=== PATIENT | male | born 1985 | race Caucasian/White ===

== ENCOUNTER 2022-08-19 03:17 | Emergency (ER) | payer MEDICAID, SELFPAY ==
[2022-08-19 03:24] VITALS: BP 130/80; BP 135/87; PULSE 70; PULSE 73; RESP 18; TEMP 36.9; O2SAT 97; O2SAT 98; BMI 24.0
--- NOTE | 2022-08-19 04:13 | ED_ITS ---
HPI - General Adult General Chief complaint: ETOH/Substance Use Stated complaint: etoh Time Seen by Provider: 08/19/22 04:13 Source: patient Mode of arrival: EMS Limitations: no limitations History of Present Illness HPI narrative: Patient 37 years old with history of poor 5 area without cutaneous manifestation, alcohol associated cirrhosis complicated with nonbleeding esophageal varices, portal hypertensive gastropathy on carvedilol, S itis on furosemide followed by [facility] stopped drinking about a year ago started drinking again after seen by his PCP yesterday who with the labs which showed elevated ammonia of 106, patient comes here for detox placement no nausea no vomiting no abdominal pain or distension no change in sensorium no melena no vomiting no abdominal pain. Patient's labs reviewed from [facility] which were done on 08/17/2022 showed WBC count of 3.2 hemoglobin 13.5 hematocrit 40.3 platelet count 52K INR of 1.5 PT of 15.5, potassium 3.8 BUN 6 creatinine 0.5 alkaline phosphatase 268 total bilirubin 3 ALT 27 AST 63 ammonia level 106 patient just discharged from [facility] on 05/26/2022 Related Data Allergies Allergy/AdvReac Type Severity Reaction Status Date / Time Penicillins [PENICILLINS] Allergy Mild HIVES Unverified 04/04/20 18:42 Review of Systems Review of Systems: Yes all other systems are reviewed and are negative [facility] Social History Social History Alcohol intake: former Smoked in Last 30 Days: No Use of substances other than those prescribed or required for medical reasons: Yes Substance Use Type: Marijuana Substance Use Frequency: Weekly Last Used Substance: Days (ago) Advance Directives: No Advance Directives Information Provided: No Physical Exam ED Vital Signs: Vital Signs - 24 hr 08/19/22 03:24 08/19/22 06:06 Temperature 98.4 F 98.4 F Pulse Rate 73 75 Respiratory Rate 18 18 Blood Pressure 135/87 134/72 Pulse Oximetry 98 98 Oxygen Delivery Method Room Air Room Air BMI result Body Mass Index 24.0 Appearance: Alert. Oriented X3. No acute distress. Eyes: icteric+ ENT: Pharynx normal. Oral Mucosa moist Neck: Normal inspection. Neck supple. CVS: Normal heart rate and rhythm. Pulses normal. Respiratory: No respiratory distress. Equal air entry bilateral, no wheezing/rales/rhonchi Abdomen: Soft and nontender. Bowel sounds are present, no mass palpable, no CVA tenderness Skin: Skin warm and dry. icteric. Normal skin turgor. Extremities: No lower extremity edema. No calf tenderness Neuro: Oriented X 3. No motor deficit. No sensory deficit.No cerebellar signs , cranial nerves II-XII intact Medications Administered Discontinued Medications Generic Name Dose Route Start Last Admin Trade Name Freq PRN Reason Stop Dose Admin Lactulose 30 gm 08/19/22 05:39 08/19/22 05:47 Lactulose 20 Gm/30 Ml Solution PO 08/19/22 05:40 30 gm ONCE ONE Administration Medical Decision Making Medical Decision Making MDM Narrative: Patient alcoholic with alcoholic cirrhosis with stable labs high ammonia level without any confusion. Will consult recovery rn/care team for detox Lab Data MDM Lab Attestation statement: I reviewed the patient's lab results. 08/19/22 04:45 08/19/22 04:45 Labs: Lab Results 08/19/22 08/19/22 08/19/22 Range/Units 04:45 04:45 04:45 WBC 4.3 L (4.8-10.8) X10*3/uL RBC 4.23 L (4.60-5.80) X10*6/uL Hgb 13.3 L (14.0-18.0) g/dl Hct 39.0 L (42.0-52.0) % MCV 92.2 (80.0-98.0) fL MCH 31.4 (27.0-33.0) pg MCHC 34.1 (31.0-36.0) g/dl RDW 14.5 (11.0-16.0) % Plt Count 40 L (160-400) X10*3/uL MPV 11.4 (9.4-12.4) fL Immature Gran % (Auto) 0.2 (0.0-0.4) % Neut % (Auto) 47.0 (45-73) % Lymph % (Auto) 42.7 H (20-40) % [place] % (Auto) 7.5 (2-11) % Eos % (Auto) 1.9 (0-4) % Baso % (Auto) 0.7 (0-2) % Lymph # (Auto) 1.8 (1.2-4.9) X10*3/uL [place] # (Auto) 0.3 (0.1-1.2) X10*3/uL Eos # (Auto) 0.1 (0.0-0.4) X10*3/uL Baso # (Auto) 0.0 (0.0-0.2) X10*3/uL Abs Immat Gran (auto) 0.01 (0.00-0.03) X10*3/uL Absolute Neuts (auto) 2.0 (2.0-8.3) x10*3/uL Absolute Nucleated RBC 0.000 (0.0-0.012) X10*3/uL Nucleated RBC % (auto) 0.0 (0.0-0.2) /100WBC Sodium 146 H (135-145) mmol/L Potassium 3.4 (3.3-5.1) mmol/L Chloride 115 H (96-108) mmol/L Carbon Dioxide 21 L (22-29) mmol/L Anion Gap 13 (12-20) BUN 5 L (9-16) mg/dL Creatinine 0.62 (0.5-1.4) mg/dL Estim Creat Clear Calc 173.7 Estimated GFR > 60 Random Glucose 98 (60-115) mg/dL Calcium 8.0 L (8.4-10.2) mg/dL Magnesium 1.7 (1.6-2.6) mg/dL Total Bilirubin 5.0 H (0.0-1.0) mg/dL AST 61 H (5-37) U/L ALT 28 (0-40) U/L Alkaline Phosphatase 202 H (39-117) U/L Ammonia 93 H (13-55) umol/L Total Protein 6.2 L (6.5-8.0) g/dL Albumin 3.0 L (3.5-5.0) g/dL Lipase 107 H (8-78) U/L Urine Opiates Screen (Not Detect) Urine Fentanyl Screen (Not Detect) Ur Barbiturates Screen (Not Detect) Ur Phencyclidine Scrn (Not Detect) Ur Amphetamines Screen (Not Detect) U Benzodiazepines Scrn (Not Detect) Urine Cocaine Screen (Not Detect) U Marijuana (THC) Screen (Not Detect) Ethyl Alcohol mg/dL 02/01/23 02/01/23 Range/Units 04:45 04:45 WBC (4.8-10.8) X10*3/uL RBC (4.60-5.80) X10*6/uL Hgb (14.0-18.0) g/dl Hct (42.0-52.0) % MCV (80.0-98.0) fL MCH (27.0-33.0) pg MCHC (31.0-36.0) g/dl RDW (11.0-16.0) % Plt Count (160-400) X10*3/uL MPV (9.4-12.4) fL Immature Gran % (Auto) (0.0-0.4) % Neut % (Auto) (45-73) % Lymph % (Auto) (20-40) % [place] % (Auto) (2-11) % Eos % (Auto) (0-4) % Baso % (Auto) (0-2) % Lymph # (Auto) (1.2-4.9) X10*3/uL [place] # (Auto) (0.1-1.2) X10*3/uL Eos # (Auto) (0.0-0.4) X10*3/uL Baso # (Auto) (0.0-0.2) X10*3/uL Abs Immat Gran (auto) (0.00-0.03) X10*3/uL Absolute Neuts (auto) (2.0-8.3) x10*3/uL Absolute Nucleated RBC (0.0-0.012) X10*3/uL Nucleated RBC % (auto) (0.0-0.2) /100WBC Sodium (135-145) mmol/L Potassium (3.3-5.1) mmol/L Chloride (96-108) mmol/L Carbon Dioxide (22-29) mmol/L Anion Gap (12-20) BUN (9-16) mg/dL Creatinine (0.5-1.4) mg/dL Estim Creat Clear Calc Estimated GFR Random Glucose (60-115) mg/dL Calcium (8.4-10.2) mg/dL Magnesium (1.6-2.6) mg/dL Total Bilirubin (0.0-1.0) mg/dL AST (5-37) U/L ALT (0-40) U/L Alkaline Phosphatase (39-117) U/L Ammonia (13-55) umol/L Total Protein (6.5-8.0) g/dL Albumin (3.5-5.0) g/dL Lipase (8-78) U/L Urine Opiates Screen Not Detected (Not Detect) Urine Fentanyl Screen Not Detected (Not Detect) Ur Barbiturates Screen Not Detected (Not Detect) Ur Phencyclidine Scrn Not Detected (Not Detect) Ur Amphetamines Screen Not Detected (Not Detect) U Benzodiazepines Scrn Not Detected (Not Detect) Urine Cocaine Screen Not Detected (Not Detect) U Marijuana (THC) Screen POSITIVE H (Not Detect) Ethyl Alcohol 265 mg/dL Discharge Plan Discharge Clinical Impression: Alcoholic intoxication, Alcoholic cirrhosis of liver Patient Disposition: Still a Patient Interventions: [place]-Suicide Risk Severity Scale Last Done: 08/19/22 03:36
[2022-08-19 04:51] LABS: MANUAL DIFF FLAG NO
[2022-08-19 04:53] LABS: Basophils Percent Auto 0.7 % (0-2); Eosinophils Absolute Auto 0.1 X10*3/uL (0.0-0.4); Eosinophils Percent Auto 1.9 % (0-4); Hemoglobin 13.3 g/dl (14.0-18.0); Imm Gran Abs Auto 0.01 X10*3/uL (0.00-0.03); Imm Gran Pct Auto 0.2 % (0.0-0.4); Lymphocytes Absolute Auto 1.8 X10*3/uL (1.2-4.9); Lymphocytes Percent Auto 42.7 % (20-40); Mean Corpuscular HGB Conc 34.1 g/dl (31.0-36.0); Mean Corpuscular Hemoglobin 31.4 pg (27.0-33.0); Mean Corpuscular Volume 92.2 fL (80.0-98.0); Mean Platelet Volume 11.4 fL (9.4-12.4); Monocytes Absolute Auto 0.3 X10*3/uL (0.1-1.2); Monocytes Percent Auto 7.5 % (2-11); Red Blood Count 4.23 X10*6/uL (4.60-5.80); Red Cell Distribution Width 14.5 % (11.0-16.0); White Blood Count 4.3 X10*3/uL (4.8-10.8)
[2022-08-19 04:55] LABS: Platelet Count 40 X10*3/uL (160-400)
[2022-08-19 05:00] LABS: Ammonia 93 umol/L (13-55)
[2022-08-19 05:06] LABS: Ethanol 265 mg/dL
[2022-08-19 05:09] LABS: Alanine Aminotransferase 28 U/L (0-40); Alkaline Phosphatase 202 U/L (39-117); Anion Gap 13 (12-20); Aspartate Amino Transferase 61 U/L (5-37); Blood Urea Nitrogen 5 mg/dL (9-16); Carbon Dioxide 21 mmol/L (22-29); Chloride 115 mmol/L (96-108); Creatinine Clr Calc Pharmacy 173.7; Estimated Glomerular Filt Rate > 60; Glucose Random 98 mg/dL (60-115); Lipase 107 U/L (8-78); Magnesium 1.7 mg/dL (1.6-2.6); Potassium 3.4 mmol/L (3.3-5.1); Sodium 146 mmol/L (135-145); Total Protein 6.2 g/dL (6.5-8.0)
[2022-08-19 05:12] LABS: Amphetamine Screen Urine Not Detected (Not Detect); Barbiturates, Urine Not Detected (Not Detect); Benzodiazepines Screen Urine Not Detected (Not Detect); Cannabinoid Screen Urine POSITIVE (Not Detect); Cocaine Screen Urine Not Detected (Not Detect); Fentanyl, urine Not Detected (Not Detect); Opiate Screen Urine Not Detected (Not Detect); Phencyclidine Screen Urine Not Detected (Not Detect)
[2022-08-19] MEDS: Lactulose 20 GM/30 ML SOLUTION 30 GM PO (05:47)
[2022-08-19 06:06] VITALS: BP 134/72; PULSE 75; RESP 18; TEMP 36.9; O2SAT 98
--- NOTE | 2022-08-19 08:52 | PHA.MEDREC ---
Pharmacy Consult ? Medication Reconciliation Pharmacy has completed the medication reconciliation. Spoke to patient directly, able to name most of his medications, I asked about furosemide and he was insistent that he takes amiloride as well with his furosemide, but he has not filled that amiloride prescription since May. Will notify provider.
--- NOTE | 2022-08-19 09:30 | PC.NURSE ---
belongings locked by security in locker 10
[2022-08-19 09:40] VITALS: RESP 18
--- NOTE | 2022-08-19 09:40 | MHC.RECOVRN ---
This typewriter tester met w/ patient, patient sleeping in bed, under blanket, awake to verbal stimuli. Patient requesting detox. Patient reports one year of recovery from ETOH. Patient states prior to coming to hospital, drank 50ml of hard alcohol. Patient states nausea, headache, body pain currently. Patient reports no history of treatment for alcohol use. Patient reports no medications used for ETOH use. Patient states increased life stressors led to reoccurrence. This typewriter tester to begin ATS bedsearch, referral sent to [facility].
[2022-08-19 10:11] LABS: COVID-19 Test Negative (Negative); IDNOW Serial# 55D5AD1C
[2022-08-19 12:00] VITALS: RESP 18
--- NOTE | 2022-08-19 12:24 | PC.NURSE ---
Spouse brought 2 weeks worth of meds. Placed in Locker 7.
--- NOTE | 2022-08-19 12:26 | MHC.RECOVRN ---
This consumer loan underwriter [facility], in order to be considered for detox admission. This consumer loan underwriter w/ patient called patients Gl[facility] Holder agreeable to drop off husbands medications here at the ED. T/W to f/u with Gabi FRANCO once medications are hereon site. Gabi will then review with detox team and get back to t/w about scheduling a phone intake with patient. Glory, patients reports has been finding drinking .
[2022-08-19 14:00] VITALS: RESP 18
--- NOTE | 2022-08-19 15:06 | MHC.RECOVRN ---
Patient completed phone intake, confirmed 4pm Admission time at [facility], Navya RN aware, Provider aware. T/W to coordinate Ly[employer] transport at 3:30pm.
== END 2022-08-19 15:21 | disposition other institution (70) ==
PROVIDERS: Emergency Provider Internal Medicine; PCP Family Medicine
DX: F10.129 Alcohol abuse with intoxication, unspecified (principal); Y90.8 Blood alcohol level of 240 mg/100 ml or more; K70.30 Alcoholic cirrhosis of liver without ascites; Z20.822 Contact with and (suspected) exposure to COVID-19; Z20.828 Contact with and (suspected) exposure to other viral communicable diseases; Z79.899 Other long term (current) drug therapy
CPT/HCPCS: 36415; 80053; 80307; 82077; 82140; 83690; 83735; 85025; 87635; 99285

== ENCOUNTER 2022-10-11 02:08 | Inpatient (IN) | payer MEDICAID, SELFPAY ==
--- NOTE | 2022-10-11 02:16 | ED_ITS ---
HPI - Alcohol General Chief Complaint: General Medical Stated Complaint: ETOH, SEEKING DETOX Time Seen by Provider: 10/11/22 02:11 Source: patient Mode of arrival: EMS Limitations: no limitations History of Present Illness HPI narrative: 37-year-old male with history of liver cirrhosis, alcohol abuse presents seeking detox. Patient has been drinking tonight. Had approximately 7 shots of 100 proof alcohol. This is just prior to arrival. He he does smoke marijuana from time to time. Denies SI or HI. Has been [facility] detox approximately 1 month ago. At that time, he was sent to [facility] for an elevated ammonia level. When he went to go back for detox, there was no bed available. Patient describes his symptoms as severe. Symptoms are worsened by alcohol abuse. Related Data Home Medications Medication Instructions Recorded Confirmed amiloride 5 mg tablet 1 tab PO BID 08/19/22 08/19/22 ascorbic acid (vitamin C) 500 mg 1 tab PO DAILY 08/19/22 08/19/22 tablet (Vitamin C) carvedilol 3.125 mg tablet 1 tab PO BID 08/19/22 08/19/22 cyanocobalamin (vitamin B-12) 500 500 mcg PO BID 08/19/22 08/19/22 mcg tablet ferrous sulfate 325 mg (65 mg 1 tab PO DAILY 08/19/22 08/19/22 iron) tablet,delayed release folic acid 1 mg tablet 1 tab PO DAILY 08/19/22 08/19/22 furosemide 40 mg tablet 1 tab PO BID 08/19/22 08/19/22 ondansetron HCl 4 mg tablet 1 tab PO Q8H PRN nausea/vomiting 08/19/22 08/19/22 oxycodone 10 mg tablet 1 tab PO BID PRN Pain 08/19/22 08/19/22 pantoprazole 40 mg tablet,delayed 1 tab PO BID@0630,1630 08/19/22 08/19/22 release potassium chloride 20 mEq 1 tab PO BID 08/19/22 08/19/22 tablet,extended release rifaximin 550 mg tablet (Xifaxan) 1 tab PO BID 08/19/22 08/19/22 thiamine HCl (vitamin B1) 100 mg 1 cap PO BID 08/19/22 08/19/22 tablet (Vitamin B-1) Allergies Allergy/AdvReac Type Severity Reaction Status Date / Time Penicillins [PENICILLINS] Allergy Mild HIVES Unverified 04/04/20 18:42 [facility] Social History Social History Alcohol intake: former Substance Use Type: Marijuana Advance Directives: No Advance Directives Information Provided: Yes Physical Exam ED Vital Signs: Vital Signs - 24 hr 10/11/22 02:39 10/11/22 05:44 Temperature 97.6 F 98 F Pulse Rate 83 88 Respiratory Rate 17 18 Blood Pressure 128/77 117/70 Pulse Oximetry 97 96 Oxygen Delivery Method Room Air Room Air BMI result Body Mass Index 25.8 GEN: Well developed, no acute distress, alert, oriented HEENT: Normocephalic, atraumatic, normal external ears, nose appears normal, no oropharyngeal edema or exudates Eyes: Normal to appearance Neck: Supple, no lymphadenopathy Respiratory: Talks in complete sentences, no respiratory distress, clear to auscultation bilaterally Cardiovascular: Regular rate and rhythm, no murmurs rubs or gallops Abdomen: Soft, nontender, nondistended, no guarding, no rebound Back: No CVA tenderness Extremities: No clubbing cyanosis or edema Neurologic: No focal neurologic deficits, cranial nerves 2-12 intact, strength is 5/5 bilaterally, gait normal, +asterixis Skin: No rash Course Course Course Narrative: 37-year-old male with history of liver cirrhosis, alcohol abuse presents requesting detox. Patient is currently intoxicated. He however he is alert and oriented. Has decision-making capacity. Is not SI or HI. Will obtain routine laboratory analysis. He did have recent history of elevated ammonia levels. Will check ammonia level specially given presence of asterixis. He does not appear to be acutely confused or metabolic encephalopathy. Reevaluation(s) Reevaluation #1: Patient transitioned to care of oncoming ED provider Time: 06:14 Medical Decision Making Medical Decision Making [facility] Narrative: Three 7-year-old male presents with acute alcohol intoxication requesting detox. Patient is not suicidal homicidal. He has no focal deficits. Does have asterixis. Differential Diagnosis Differential Diagnoses: The differential diagnosis associated with the presentation includes (Alcohol abuse, substance abuse, depression, anxiety, encephalopathy) Admission/Observation Consideration of admission/observation: Escalation of care including admission/observation considered Lab Data [facility] Lab Attestation statement: I reviewed the patient's lab results. 10/11/22 02:36 10/11/22 02:36 Labs: Lab Results 10/11/22 10/11/22 10/11/22 Range/Units 02:36 02:36 02:36 WBC 3.9 L (4.8-10.8) X10*3/uL RBC 4.26 L (4.60-5.80) X10*6/uL Hgb 13.6 L (14.0-18.0) g/dl Hct 39.2 L (42.0-52.0) % MCV 92.0 (80.0-98.0) fL MCH 31.9 (27.0-33.0) pg MCHC 34.7 (31.0-36.0) g/dl RDW 15.9 (11.0-16.0) % Plt Count 51 L D (160-400) X10*3/uL MPV 11.0 (9.4-12.4) fL Immature Gran % (Auto) 0.3 (0.0-0.4) % Neut % (Auto) 46.2 (45-73) % Lymph % (Auto) 45.5 H (20-40) % [place] % (Auto) 5.9 (2-11) % Eos % (Auto) 1.3 (0-4) % Baso % (Auto) 0.8 (0-2) % Lymph # (Auto) 1.8 (1.2-4.9) X10*3/uL [place] # (Auto) 0.2 (0.1-1.2) X10*3/uL Eos # (Auto) 0.1 (0.0-0.4) X10*3/uL Baso # (Auto) 0.0 (0.0-0.2) X10*3/uL Abs Immat Gran (auto) 0.01 (0.00-0.03) X10*3/uL Absolute Neuts (auto) 1.8 L (2.0-8.3) x10*3/uL Absolute Nucleated RBC 0.000 (0.0-0.012) X10*3/uL Nucleated RBC % (auto) 0.0 (0.0-0.2) /100WBC Sodium 144 (135-145) mmol/L Potassium 3.3 (3.3-5.1) mmol/L Chloride 116 H (96-108) mmol/L Carbon Dioxide 20 L (22-29) mmol/L Anion Gap 11 L (12-20) BUN 6 L (9-16) mg/dL Creatinine 0.61 (0.5-1.4) mg/dL Estim Creat Clear Calc 171.1 Estimated GFR > 60 Random Glucose 99 (60-115) mg/dL Calcium 8.2 L (8.4-10.2) mg/dL Total Bilirubin 3.8 H (0.0-1.0) mg/dL AST 55 H (5-37) U/L ALT 26 (0-40) U/L Alkaline Phosphatase 193 H (39-117) U/L Ammonia 66 H (13-55) umol/L Total Protein 6.4 L (6.5-8.0) g/dL Albumin 3.3 L (3.5-5.0) g/dL Urine Color Urine Appearance Urine pH (5.0-9.0) Ur Specific [place] (1.005-1.025) Urine Protein (Neg-Trace) mg/dL Urine Glucose (UA) (Negative) mg/dL Urine Ketones (Negative) mg/dL Urine Blood (Negative) Urine Nitrite (Negative) Ur Leukocyte Esterase (Negative) Urine Opiates Screen (Not Detect) Urine Fentanyl Screen (Not Detect) Ur Barbiturates Screen (Not Detect) Ur Phencyclidine Scrn (Not Detect) Ur Amphetamines Screen (Not Detect) U Benzodiazepines Scrn (Not Detect) Urine Cocaine Screen (Not Detect) U Marijuana (THC) Screen (Not Detect) Ethyl Alcohol 316 H* mg/dL COVID-19 (AMY) (Negative) COVID-19 Clin Com 10/11/22 10/11/22 10/11/22 Range/Units 02:36 04:11 04:11 WBC (4.8-10.8) X10*3/uL RBC (4.60-5.80) X10*6/uL Hgb (14.0-18.0) g/dl Hct (42.0-52.0) % MCV (80.0-98.0) fL MCH (27.0-33.0) pg MCHC (31.0-36.0) g/dl RDW (11.0-16.0) % Plt Count (160-400) X10*3/uL MPV (9.4-12.4) fL Immature Gran % (Auto) (0.0-0.4) % Neut % (Auto) (45-73) % Lymph % (Auto) (20-40) % [place] % (Auto) (2-11) % Eos % (Auto) (0-4) % Baso % (Auto) (0-2) % Lymph # (Auto) (1.2-4.9) X10*3/uL [place] # (Auto) (0.1-1.2) X10*3/uL Eos # (Auto) (0.0-0.4) X10*3/uL Baso # (Auto) (0.0-0.2) X10*3/uL Abs Immat Gran (auto) (0.00-0.03) X10*3/uL Absolute Neuts (auto) (2.0-8.3) x10*3/uL Absolute Nucleated RBC (0.0-0.012) X10*3/uL Nucleated RBC % (auto) (0.0-0.2) /100WBC Sodium (135-145) mmol/L Potassium (3.3-5.1) mmol/L Chloride (96-108) mmol/L Carbon Dioxide (22-29) mmol/L Anion Gap (12-20) BUN (9-16) mg/dL Creatinine (0.5-1.4) mg/dL Estim Creat Clear Calc Estimated GFR Random Glucose (60-115) mg/dL Calcium (8.4-10.2) mg/dL Total Bilirubin (0.0-1.0) mg/dL AST (5-37) U/L ALT (0-40) U/L Alkaline Phosphatase (39-117) U/L Ammonia (13-55) umol/L Total Protein (6.5-8.0) g/dL Albumin (3.5-5.0) g/dL Urine Color Dark Yellow Urine Appearance Clear Urine pH 7.5 (5.0-9.0) Ur Specific [place] 1.020 (1.005-1.025) Urine Protein Negative (Neg-Trace) mg/dL Urine Glucose (UA) Negative (Negative) mg/dL Urine Ketones Negative (Negative) mg/dL Urine Blood Negative (Negative) Urine Nitrite Negative (Negative) Ur Leukocyte Esterase Negative (Negative) Urine Opiates Screen Not Detected (Not Detect) Urine Fentanyl Screen Not Detected (Not Detect) Ur Barbiturates Screen Not Detected (Not Detect) Ur Phencyclidine Scrn Not Detected (Not Detect) Ur Amphetamines Screen Not Detected (Not Detect) U Benzodiazepines Scrn Not Detected (Not Detect) Urine Cocaine Screen Not Detected (Not Detect) U Marijuana (THC) Screen POSITIVE H (Not Detect) Ethyl Alcohol mg/dL COVID-19 (AMY) Negative (Negative) COVID-19 Clin Com See Note Independent Historian Clinical information obtained from an independent historian. History obtained from or confirmed by: EMS Prescription Management I considered prescription management with: Other (Ativan) Chronic Conditions Patient?s care impacted by: Other (Alcohol abuse) Medications Administered Generic Name Dose Route Start Last Admin Trade Name Freq PRN Reason Stop Dose Admin Lactulose 30 gm 10/11/22 03:15 10/11/22 03:29 Lactulose 20 Gm/30 Ml Solution PO 30 gm TID TERRANCE Administration Discharge Plan Discharge Clinical Impression: Alcohol abuse Patient Disposition: Still a Patient Prescriptions: No Action furosemide 40 mg tablet 1 tab PO BID thiamine HCl (vitamin B1) [Vitamin B-1] 100 mg tablet 1 cap PO BID carvedilol 3.125 mg tablet 1 tab PO BID ascorbic acid (vitamin C) [Vitamin C] 500 mg tablet 1 tab PO DAILY pantoprazole 40 mg tablet,delayed release (DR/EC) 1 tab PO BID@0630,1630 folic acid 1 mg tablet 1 tab PO DAILY ferrous sulfate 325 mg (65 mg iron) tablet,delayed release (DR/EC) 1 tab PO DAILY potassium chloride 20 mEq tablet extended release 1 tab PO BID ondansetron HCl 4 mg tablet 1 tab PO Q8H PRN (Reason: nausea/vomiting) amiloride 5 mg tablet 1 tab PO BID cyanocobalamin (vitamin B-12) 500 mcg Tablet 500 mcg PO BID oxycodone 10 mg tablet 1 tab PO BID PRN (Reason: Pain) Xifaxan 550 mg tablet 1 tab PO BID
[2022-10-11 02:31] VITALS: BP 140/97; PULSE 84; O2SAT 99
[2022-10-11 02:39] VITALS: BP 128/77; PULSE 83; RESP 17; TEMP 36.4; O2SAT 97; BMI 25.8
[2022-10-11 02:49] LABS: MANUAL DIFF FLAG NO
[2022-10-11 02:51] LABS: Basophils Percent Auto 0.8 % (0-2); Eosinophils Absolute Auto 0.1 X10*3/uL (0.0-0.4); Eosinophils Percent Auto 1.3 % (0-4); Hematocrit 39.2 % (42.0-52.0); Hemoglobin 13.6 g/dl (14.0-18.0); Imm Gran Abs Auto 0.01 X10*3/uL (0.00-0.03); Imm Gran Pct Auto 0.3 % (0.0-0.4); Lymphocytes Absolute Auto 1.8 X10*3/uL (1.2-4.9); Lymphocytes Percent Auto 45.5 % (20-40); Mean Corpuscular HGB Conc 34.7 g/dl (31.0-36.0); Mean Corpuscular Hemoglobin 31.9 pg (27.0-33.0); Monocytes Absolute Auto 0.2 X10*3/uL (0.1-1.2); Monocytes Percent Auto 5.9 % (2-11); Neutrophils Absolute Auto 1.8 x10*3/uL (2.0-8.3); Neutrophils Percent Auto 46.2 % (45-73); Platelet Count 51 X10*3/uL (160-400); Red Blood Count 4.26 X10*6/uL (4.60-5.80); Red Cell Distribution Width 15.9 % (11.0-16.0); White Blood Count 3.9 X10*3/uL (4.8-10.8)
[2022-10-11 03:01] LABS: Ammonia 66 umol/L (13-55)
[2022-10-11 03:10] LABS: Alanine Aminotransferase 26 U/L (0-40); Albumin Level 3.3 g/dL (3.5-5.0); Alkaline Phosphatase 193 U/L (39-117); Anion Gap 11 (12-20); Aspartate Amino Transferase 55 U/L (5-37); Bilirubin Total 3.8 mg/dL (0.0-1.0); Blood Urea Nitrogen 6 mg/dL (9-16); Calcium 8.2 mg/dL (8.4-10.2); Carbon Dioxide 20 mmol/L (22-29); Chloride 116 mmol/L (96-108); Creatinine Clr Calc Pharmacy 171.1; Estimated Glomerular Filt Rate > 60; Ethanol 316 mg/dL; Glucose Random 99 mg/dL (60-115); Potassium 3.3 mmol/L (3.3-5.1); Sodium 144 mmol/L (135-145); Total Protein 6.4 g/dL (6.5-8.0)
--- NOTE | 2022-10-11 03:11 | PC.NURSE ---
Report received from Candace FRANCO.
[2022-10-11 03:17] LABS: COVID-19 Test Negative (Negative); IDNOW Serial# 6674DD1D
[2022-10-11] MEDS: Lactulose 20 GM/30 ML SOLUTION 30 GM PO ×3 (03:29→14:55)
[2022-10-11 04:18] LABS: Appearance Urine Clear; Color Urine Dark Yellow; Glucose Urine UA Negative (Negative); Leukocyte Esterase Urine Negative (Negative); Nitrite Urine Negative (Negative); PH 7.5 (5.0-9.0); Urine Blood Negative (Negative); Urine Ketones Negative (Negative); Urine Protein Negative (Neg-Trace)
[2022-10-11 04:29] LABS: Amphetamine Screen Urine Not Detected (Not Detect); Barbiturates, Urine Not Detected (Not Detect); Benzodiazepines Screen Urine Not Detected (Not Detect); Cannabinoid Screen Urine POSITIVE (Not Detect); Cocaine Screen Urine Not Detected (Not Detect); Fentanyl, urine Not Detected (Not Detect); Opiate Screen Urine Not Detected (Not Detect); Phencyclidine Screen Urine Not Detected (Not Detect)
--- NOTE | 2022-10-11 04:39 | PC.NURSE ---
Update given to pts at this time.
[2022-10-11 05:44] VITALS: BP 117/70; PULSE 88; RESP 18; TEMP 36.6; O2SAT 96
--- NOTE | 2022-10-11 06:57 | PC.NURSE ---
Patient sleeping no distress or discomfort noted will CTM
--- NOTE | 2022-10-11 07:25 | PC.NURSE ---
Patient easily aroused AOx 4 no distress or agitation will CTM
[2022-10-11 07:26] VITALS: BP 120/65; PULSE 94; RESP 18; O2SAT 97
--- NOTE | 2022-10-11 08:17 | PM.IMHP ---
History of Present Illness Date of Service: 10/11/22 Chief Complaint: Alcohol intoxication and seeking detox 37-year-old male, with medical history of alcoholic liver cirrhosis, complicated by ascites, esophageal varices, portal hypertension gastropathy, hepatic encephalopathy, and h/o porphyria. He has been drinking heavily and presented to the ED to seek Detox, his last drink was just the day of presentation with at least 7 shots of 100 proof of alcohol right before coming in. In July he checked himself into [facility] and while there was trasfered to [facility] due to some confusion likely encephalopathy following Discharge, they they tried to send him back to [facility] but the refused to take him. He has been drinking off and on, and not regular with his lactulose. He is presently not confused, ammmnia level 66, alcohol level was > 300. He admit to history of alcohol withdrawal and seizure.s Review of Systems Review of Systems: Gen: no fever Resp: no sob, no cough CV: no chest, no BRAY, no leg edema GI: No n/v, no abd pain Neuro: No confusion PMFSH Social History Household Members: Family Housing: Apartment Do you presently have visiting nurse or other home services: No Alcohol intake: former Patient Tobacco Use Status: Former Tobacco user Use of substances other than those prescribed or required for medical reasons: Yes Substance Use Type: Marijuana Substance Use Frequency: Daily Last Used Substance: Just Prior to Admission Currently Displaying Signs/Symptoms of Drug Intoxication Withdrawal: No Any prior treatment program specific to substance use: Yes Have you been hit, kicked, punched, or otherwise hurt by someone within the past year? If so, by whom?: No Do you feel safe in your current relationship?: Yes Is there a partner from a previous relationship who is making you feel unsafe now?: No Are you made to feel afraid or neglected: No Advance Directives: No Advance Directives Information Provided: Yes Do you have thoughts of harming others: None Do you have a plan to hurt others: No Plan Recently lost weight without trying: No Eating poorly because of decreased appetite: No Nutrition Risks: No Nutritional Risk Poor oral hygiene: No Meds Allergies Allergy/AdvReac Type Severity Reaction Status Date / Time Penicillins [PENICILLINS] Allergy Mild HIVES Unverified 04/04/20 18:42 Active Medications: Current Medications Lactulose (Lactulose 20 Gm/30 Ml Solution) 30 gm PO TID TERRANCE Last Admin: 10/11/22 08:10 Dose: 30 gm Lorazepam (Lorazepam 1 Mg Tablet) 2 mg PO QID PRN PRN Reason: withdrawal symptoms Pharmacy Consult (Consult Rx Perform Med Rec) 1 each MISCELLANE ONCE PRN PRN Reason: Consult order Home Medications Medication Instructions Recorded Confirmed Last Taken Type amiloride 5 mg tablet 2 tab PO DAILY 08/19/22 10/11/22 Unknown History ascorbic acid (vitamin C) 500 mg 1 tab PO DAILY 08/19/22 10/11/22 08/18/22 History tablet (Vitamin C) carvedilol 3.125 mg tablet 1 tab PO BID 08/19/22 10/11/22 08/18/22 History cyanocobalamin (vitamin B-12) 500 500 mcg PO BID 08/19/22 10/11/22 Unknown History mcg tablet ferrous sulfate 325 mg (65 mg 1 tab PO DAILY 08/19/22 10/11/22 08/18/22 History iron) tablet,delayed release folic acid 1 mg tablet 1 tab PO DAILY 08/19/22 10/11/22 08/18/22 History furosemide 40 mg tablet 1 tab PO BID 08/19/22 10/11/22 08/18/22 History oxycodone 10 mg tablet 1 tab PO BID PRN Pain (Scale Score 08/19/22 10/11/22 08/18/22 History 4-6) pantoprazole 40 mg tablet,delayed 1 tab PO BID@0630,1630 08/19/22 10/11/22 08/18/22 History release potassium chloride 20 mEq 1 tab PO BID 08/19/22 10/11/22 08/18/22 History tablet,extended release rifaximin 550 mg tablet (Xifaxan) 1 tab PO BID 08/19/22 10/11/22 08/18/22 History thiamine HCl (vitamin B1) 100 mg 2 cap PO DAILY 08/19/22 10/11/22 08/18/22 History tablet (Vitamin B-1) lactulose 10 gram/15 mL oral 30 ml PO QID 10/11/22 10/11/22 Unknown History solution mirtazapine 15 mg tablet 7.5 mg PO BEDTIME 10/11/22 10/11/22 Unknown History ondansetron HCl 8 mg tablet 8 mg PO BID PRN nausea/vomiting 10/11/22 10/11/22 Unknown History Physical Exam Vital Signs and Narrative: Vital Signs: Last Vital Signs Temp 98 F 10/11/22 05:44 Pulse 94 10/11/22 07:26 Resp 18 10/11/22 07:26 BP 120/65 10/11/22 07:26 Pulse Ox 97 10/11/22 07:26 O2 Del Method Room Air 10/11/22 07:26 BMI result Body Mass Index 25.8 Const: Other: Constitutional: Alert, in no distress, Mental Status: Oriented to person, place and time. Eyes: Pupils are equal, round and reactive to light. Ear, Nose and Throat: Oropharynx clear, mucous membranes moist. Respiratory: Clear to auscultation. No wheezing, rales or rhonchi. Cardiovascular: S1 S2 regular. No murmurs, rubs or gallops. Gastrointestinal: Abdomen soft, non-tender, non-distended. Normal bowel sounds.? Neurologic: Cranial nerves II-XII grossly intact. No focal neurological deficits. Moves all extremities spontaneously.? Skin: No rashes or lesions.? Musculoskeletal: No cyanosis or clubbing. Psychiatric: Normal mood and affect? Results Labs 10/11/22 02:36 10/11/22 02:36 Labs: Laboratory Results - last 24 hr 10/11/22 10/11/22 10/11/22 02:36 02:36 02:36 MCV 92.0 MCH 31.9 MCHC 34.7 RDW 15.9 Plt Count 51 L D MPV 11.0 Immature Gran % (Auto) 0.3 Neut % (Auto) 46.2 Lymph % (Auto) 45.[address] [place] % (Auto) 5.9 Eos % (Auto) 1.3 Baso % (Auto) 0.8 Lymph # (Auto) 1.8 [place] # (Auto) 0.2 Eos # (Auto) 0.1 Baso # (Auto) 0.0 Abs Immat Gran (auto) 0.01 Absolute Neuts (auto) 1.8 L Absolute Nucleated RBC 0.000 Nucleated RBC % (auto) 0.0 Anion Gap 11 L Estim Creat Clear Calc 171.1 Estimated GFR > 60 Random Glucose 99 Calcium 8.2 L Total Bilirubin 3.8 H AST 55 H ALT 26 Alkaline Phosphatase 193 H Ammonia 66 H Total Protein 6.4 L Albumin 3.3 L Urine Color Urine Appearance Urine pH Ur Specific [place] Urine Protein Urine Glucose (UA) Urine Ketones Urine Blood Urine Nitrite Ur Leukocyte Esterase Urine Opiates Screen Urine Fentanyl Screen Ur Barbiturates Screen Ur Phencyclidine Scrn Ur Amphetamines Screen U Benzodiazepines Scrn Urine Cocaine Screen U Marijuana (THC) Screen Ethyl Alcohol 316 H* COVID-19 (AMY) COVID-19 Triangulate 10/11/22 10/11/22 10/11/22 02:36 04:11 04:11 MCV MCH MCHC RDW Plt Count MPV Immature Gran % (Auto) Neut % (Auto) Lymph % (Auto) [place] % (Auto) Eos % (Auto) Baso % (Auto) Lymph # (Auto) [place] # (Auto) Eos # (Auto) Baso # (Auto) Abs Immat Gran (auto) Absolute Neuts (auto) Absolute Nucleated RBC Nucleated RBC % (auto) Anion Gap Estim Creat Clear Calc Estimated GFR Random Glucose Calcium Total Bilirubin AST ALT Alkaline Phosphatase Ammonia Total Protein Albumin Urine Color Dark Yellow Urine Appearance Clear Urine pH 7.5 Ur Specific [place] 1.020 Urine Protein Negative Urine Glucose (UA) Negative Urine Ketones Negative Urine Blood Negative Urine Nitrite Negative Ur Leukocyte Esterase Negative Urine Opiates Screen Not Detected Urine Fentanyl Screen Not Detected Ur Barbiturates Screen Not Detected Ur Phencyclidine Scrn Not Detected Ur Amphetamines Screen Not Detected U Benzodiazepines Scrn Not Detected Urine Cocaine Screen Not Detected U Marijuana (THC) Screen POSITIVE H Ethyl Alcohol COVID-19 (AMY) Negative COVID-19 Triangulate See Note Assessment and Plan (1) Alcohol abuse: Status: Acute Plan ?37-year-old male, with medical history of alcoholic cirrhosis alcoholic liver cirrhosis, ascites, portal hypertension gastropathy, esophageal varices here with metabolic encephalopathy from hepatic encephalopathy, impending alcohol withdrwawal ? Alcoholic Liver Cirrhosis Hepatic Encephalopathy,?likely?[place] Grade 1 Portal Hypertensive Gastropathy Hx fo Cx including Mild Ascites, Esophageal Varices,?no recent GI bleed Impending alcohohol withdrawal Continue Lactulose, hold for diarrhea Continue rifaximin Continue folic acid Continue with thiamine Continue vitamin Start Phenobarbital Continue carvedilol 3.125 mg twice daily Continue ferrous sulfate 325 mg daily Continue furosemide 40 mg twice daily Continue amiloride 10 mg daily ?Pancytopenia d/t cirrhosis..monito, avoid anti-pletlets and Code Status: Full Code Diet: Regular Diet DVT Prophylaxis: Pneumatic Compression Boots, given thrombocytopenia and varices to avoid any bleeding complication early ambulation ? Time Spent With Patient Time: Total time managing care of this patient today ____ minutes. Quality Stroke Does the patient have a stroke diagnosis?: No VTE Prior VTE?: No VTE Risk Level:: Medical - low VTE Device Contraindication: Treatment Not Indicated VTE Drug Contraindication: Treatment Not Indicated
--- NOTE | 2022-10-11 08:56 | PHA.MEDREC ---
Pharmacy Consult ? Medication Reconciliation Pharmacy has completed the medication reconciliation. Went downstairs to discuss home medications with patient but sleeping and not responding. Med rec completed per claim hx/recent admision
[2022-10-11 09:33] LABS: INTERNATIONAL NORM RATIO 1.8 (0.9-1.1)
--- NOTE | 2022-10-11 09:58 | PC.NURSE ---
pt resting, AOx3, no apparent distress at this time will CTM
[2022-10-11 14:41] VITALS: BP 151/89; PULSE 80; RESP 14; TEMP 37.1; O2SAT 99
[2022-10-11] MEDS: 0.9 % Sodium Chloride Flush 3 ML SYRINGE IVFLUSH ×2 (14:57→19:21)
[2022-10-11] MEDS: oxyCODONE HCl Immed Release 5 MG TABLET PO ×2 (17:22→19:20)
[2022-10-11] MEDS: Ondansetron ODT 8 MG TAB.RAPDIS TRANSLINGU (17:22)
[2022-10-11] MEDS: PHENobarbitaL sodium 130 MG/ML IM ONCE 234 MG IM (19:20)
[2022-10-11 19:25] VITALS: BP 126/75; PULSE 88; RESP 18; TEMP 37.7; O2SAT 97
[2022-10-11] MEDS: carvediloL 3.125 MG TABLET PO (20:22)
[2022-10-11] MEDS: Lactulose 20 GM/30 ML SOLUTION PO (20:22)
[2022-10-11] MEDS: Mirtazapine 7.5 MG TABLET PO (20:22)
[2022-10-11] MEDS: rifAXIMin 550 MG TABLET PO (20:22)
[2022-10-11] MEDS: Cyanocobalamin (Vitamin B-12) 500 MCG TABLET PO (20:22)
[2022-10-11] MEDS: Potassium Chloride ER 20 MEQ TAB.ER.PRT PO (20:22)
[2022-10-11] MEDS: PHENobarbitaL sodium 130 MG/ML VIAL IM Q3Hx2 175 MG IM (22:14)
[2022-10-12] MEDS: PHENobarbitaL sodium 130 MG/ML VIAL IM Q3Hx2 175 MG IM (01:04)
[2022-10-12 03:37] VITALS: BP 124/74; PULSE 74; RESP 20; TEMP 36.8; O2SAT 96
[2022-10-12] MEDS: oxyCODONE HCl Immed Release 5 MG TABLET 10 MG PO ×2 (06:00→16:40)
[2022-10-12] MEDS: Omeprazole 20 MG CAPSULE.DR PO ×2 (06:00→16:40)
[2022-10-12 07:52] VITALS: BP 118/74; PULSE 66; RESP 18; TEMP 36.4; O2SAT 95
[2022-10-12] MEDS: Spironolactone 25 MG TABLET 50 MG PO ×2 (08:51→16:40)
[2022-10-12] MEDS: carvediloL 3.125 MG TABLET PO (08:51)
[2022-10-12] MEDS: Folic Acid 1 MG TABLET PO (08:51)
[2022-10-12] MEDS: Potassium Chloride ER 20 MEQ TAB.ER.PRT PO (08:52)
[2022-10-12] MEDS: Ascorbic Acid 500 MG TABLET PO (08:52)
[2022-10-12] MEDS: Thiamine HCL 100 MG TABLET 200 MG PO (08:52)
[2022-10-12] MEDS: rifAXIMin 550 MG TABLET PO (08:52)
[2022-10-12] MEDS: Ferrous Sulfate 324 MG TABLET.DR PO (08:52)
[2022-10-12] MEDS: PHENobarbitaL 15 MG TABLET 45 MG PO (08:53)
[2022-10-12] MEDS: Furosemide 40 MG TABLET PO ×2 (08:53→16:40)
[2022-10-12] MEDS: Lactulose 20 GM/30 ML SOLUTION PO ×3 (08:53→16:41)
--- NOTE | 2022-10-12 09:00 | HO.PM.IMPN ---
Subjective Subjective Date of Service: 10/12/22 Interval History: f/u alcohol abuse no active withdrawal at this time Review of Systems Gen: no fever Resp: no sob, no cough CV: no chest, no BRAY, no leg edema GI: No n/v, no abd pain Neuro: No confusion Physical Exam Vital Signs: Vital Signs: Last Vital Signs Temp 97.6 F 10/12/22 07:52 Pulse 66 10/12/22 07:52 Resp 18 10/12/22 07:52 BP 118/74 10/12/22 07:52 Pulse Ox 95 10/12/22 07:52 O2 Del Method Room Air 10/12/22 07:52 BMI result Body Mass Index 25.8 Const: Other: General: AO X 3, no acute distress Resp: CTA bilateral CVS: S1,S2,RRR GI: +BS, NT, no distention Skin: No rash Neuro: motor grossly intact Psych: appropriate affect Objective Data Active Medications Ascorbic Acid (Ascorbic Acid 500 Mg Tablet) 500 mg PO DAILY [facility] Carvedilol (Carvedilol 3.125 Mg Tablet) 3.125 mg PO BID [facility]; Protocol Last Admin: 10/11/22 20:22 Dose: 3.125 mg Documented By: KASIE Cyanocobalamin (Cyanocobalamin (Vitamin B-12) 500 Mcg Tablet) 500 mcg PO BID [facility] Last Admin: 10/11/22 20:22 Dose: 500 mcg Documented By: KAISE Ferrous Sulfate (Ferrous Sulfate 324 Mg Tablet.) 324 mg PO DAILY [facility] Folic Acid (Folic Acid 1 Mg Tablet) 1 mg PO DAILY [facility] Furosemide (Furosemide 40 Mg Tablet) 40 mg PO BIDWM [facility]; Protocol Lactulose (Lactulose 20 Gm/30 Ml Solution) 20 gm PO QID [facility] Last Admin: 10/11/22 20:22 Dose: 20 gm Documented By: KASIE Mirtazapine (Mirtazapine 7.5 Mg Tablet) 7.5 mg PO BEDTIME [facility] Last Admin: 10/11/22 20:22 Dose: 7.5 mg Documented By: KASIE Omeprazole (Omeprazole 20 Mg Capsule.) 20 mg PO BID@0630,1630 [facility] Last Admin: 10/12/22 06:00 Dose: 20 mg Documented By: KASIE Ondansetron HCl (Ondansetron Odt 8 Mg Tab.Rapdis) 8 mg TRANSLINGU BID PRN PRN Reason: nausea/vomiting Last Admin: 10/11/22 17:22 Dose: 8 mg Documented By: JOHN Oxycodone HCl (Oxycodone Hcl Immed Release 5 Mg Tablet) 10 mg PO BID PRN PRN Reason: Pain (Scale Score 4-6) Last Admin: 10/12/22 06:00 Dose: 10 mg Documented By: KASIE Pharmacy Consult (Consult Rx Perform Med Rec) 1 each MISCELLANE ONCE PRN PRN Reason: Consult order Pharmacy Consult (Consult Rx Etoh Phenob Im/Po) 1 each MISCELLANE ONCE PRN; Protocol PRN Reason: Consult order Phenobarbital (Phenobarbital 15 Mg Tablet) 45 mg PO BID [facility] Stop: 10/13/22 21:01 Phenobarbital (Phenobarbital 15 Mg Tablet) 15 mg PO BID [facility] Stop: 10/15/22 21:01 Phenobarbital (Phenobarbital 15 Mg Tablet) 15 mg PO DAILY [facility] Stop: 10/17/22 09:01 Potassium Chloride (Potassium Chloride Er 20 Meq Tab.Er.Prt) 20 meq PO BID [facility] Last Admin: 10/11/22 20:22 Dose: 20 meq Documented By: KASIE Rifaximin (Rifaximin 550 Mg Tablet) 550 mg PO BID [facility] Last Admin: 10/11/22 20:22 Dose: 550 mg Documented By: KASIE Sodium Chloride (0.9 % Sodium Chloride Flush 3 Ml Syringe) 3 ml IVFLUSH QSHIFT [facility] Last Admin: 10/11/22 19:21 Dose: 3 ml Documented By: KASIE Spironolactone (Spironolactone 25 Mg Tablet) 50 mg PO BIDWM [facility] Thiamine HCl (Thiamine Hcl 100 Mg Tablet) 200 mg PO DAILY [facility] Labs 10/11/22 02:36 10/11/22 02:36 Labs: Laboratory Results - last 24 hr 10/11/22 09:21 PT 21.0 H INR 1.8 H Assessment and Plan (1) Alcohol abuse: Status: Acute Plan ?37-year-old male, with medical history of alcoholic cirrhosis alcoholic liver cirrhosis, ascites, portal hypertension gastropathy, esophageal varices here with metabolic encephalopathy from hepatic encephalopathy, impending alcohol withdrwawal ? Alcoholic Liver Cirrhosis Hepatic Encephalopathy,?likely?[place] Grade 1, presently lucid Portal Hypertensive Gastropathy Hx fo Cx including Mild Ascites, Esophageal Varices,?no recent GI bleed Impending alcohohol withdrawal, no active withdrawal at this time Continue Lactulose, hold for diarrhea Continue rifaximin Continue folic acid Continue with thiamine Continue vitamin Start Phenobarbital Continue carvedilol 3.125 mg twice daily Continue ferrous sulfate 325 mg daily Continue furosemide 40 mg twice daily Continue amiloride 10 mg daily Addiction med consult for placement if not then discharge. ?Pancytopenia d/t cirrhosis..monito, avoid anti-pletlets and Code Status: Full Code Diet: Regular Diet DVT Prophylaxis: Pneumatic Compression Boots, given thrombocytopenia and varices to avoid any bleeding complication early ambulation ? Time Spent With Patient Time: Total time managing care of this patient today ____ minutes. Quality Stroke Does the patient have a stroke diagnosis?: No VTE Prior VTE?: No VTE Risk Level:: Medical - low VTE Device Contraindication: Treatment Not Indicated VTE Drug Contraindication: Treatment Not Indicated
[2022-10-12] MEDS: Cyanocobalamin (Vitamin B-12) 500 MCG TABLET PO (09:04)
--- NOTE | 2022-10-12 09:04 | P.DS_ITS ---
DS: Providers Provider Date of Service: 10/12/22 Date of admission: 10/11/22 08:37 Primary care physician: Unknown Physician Consults: 10/11/22 02:21 Consult to Care Team Stat Comment: Reason for consultation: alcohol abuse 10/12/22 08:13 Addiction Medicine Routine Consulting Provider: Addiction Covering Reason for consultation: Alcoholic, wants detox Has provider been notified: No DS: Diagnosis Discharge Diagnosis (1) Alcohol abuse: Status: Acute DS: Summary Hospital Course Hospital Course: Chief Complaint: Alcohol intoxication and seeking detox 37-year-old male, with medical history of alcoholic liver cirrhosis, complicated by ascites, esophageal varices, portal hypertension gastropathy, hepatic encephalopathy, and h/o? porphyria. He has been drinking heavily and presented to the ED to seek Detox, his last drink was just the day of presentation with at least 7 shots of 100 proof of alcohol right before coming in. In July he checked himself into [facility] and while there was trasfered to [facility] due to some confusion likely encephalopathy following Discharge, they they tried to send him back to [facility] but the refused to take him. He has been drinking off and on, and not regular with his lactulose. He is presently not confused, ammmnia level 66, alcohol level was > 300. He admit to history of alcohol withdrawal and seizure.s Hospital course: Patient is an alcoholic who presented seeking detex, he has not exhibited sourav withdrawal at this time, but has been onPhenobarbital to prevent withdrawal, he is no encephalopathic at this time. Addiction med is asked to assist in working with him for [facility] facility. He has been previously at [facility] Time Spent with Patient Time attestation: Total time managing care of this patient today ____ minutes. Discharge coordination time: Greater than 30 minutes Quality: Safe Use of Opioids Does Pt have an Active Cancer Diagnosis on the Problem List?: No Quality: Stroke Does the patient have a stroke diagnosis?: No Physical Exam Vital Signs: Vital Signs: Last Vital Signs Temp 97.6 F 10/12/22 07:52 Pulse 66 10/12/22 07:52 Resp 18 10/12/22 07:52 BP 118/74 10/12/22 07:52 Pulse Ox 95 10/12/22 07:52 O2 Del Method Room Air 10/12/22 07:52 BMI result Body Mass Index 25.8 DS: Data Data Completed and Pending Labs on day of discharge: Laboratory Results - last 24 hr 10/11/22 09:21 PT 21.0 H INR 1.8 H Discharge Plan Discharge Anticipated Discharge Date/Time: 10/12/22 09:07 Patient Disposition: Home, Self-Care Discharge Diagnosis: Alcohol dependence Referrals: Physician,Unknown J [Physician] - 1 Week Discharge Medications: Continued furosemide 40 mg tablet 1 tab PO BID thiamine HCl (vitamin B1) [Vitamin B-1] 100 mg tablet 2 cap PO DAILY carvedilol 3.125 mg tablet 1 tab PO BID ascorbic acid (vitamin C) [Vitamin C] 500 mg tablet 1 tab PO DAILY pantoprazole 40 mg tablet,delayed release (DR/EC) 1 tab PO BID@0630,1630 folic acid 1 mg tablet 1 tab PO DAILY ferrous sulfate 325 mg (65 mg iron) tablet,delayed release (DR/EC) 1 tab PO DAILY potassium chloride 20 mEq tablet extended release 1 tab PO BID amiloride 5 mg tablet 2 tab PO DAILY cyanocobalamin (vitamin B-12) 500 mcg Tablet 500 mcg PO BID oxycodone 10 mg tablet 1 tab PO BID PRN (Reason: Pain (Scale Score 4-6)) Xifaxan 550 mg tablet 1 tab PO BID ondansetron HCl 8 mg tablet 8 mg PO BID PRN (Reason: nausea/vomiting) lactulose 10 gram/15 mL solution 30 ml PO QID mirtazapine 15 mg tablet 7.5 mg PO BEDTIME Discharge Orders: Discharge Order (Routine); Ordered 10/12/22 Ordered By: Fernandez Delong Diet: Advance to usual diet Activity on Discharge: As tolerated Stand Alone Forms: Patient Portal Discharge page Care Plan Goals: Abstinence from alcohol Health Concerns: Alcool depenency Plan of Treatment: To [facility] Detox facility Assessment: As above Discharge Date/Time: 10/12/22 18:09
--- NOTE | 2022-10-12 10:23 | MHC.CM.PN ---
PT REPORTS HE LIVES WITH HIS S/O AND IS INDEPENDENT WITH CARE PT IS ACTIVE WITH AN OUTPATIENT THERAPIST ONGOING AND CURRENTLY ATTENDING AN IOP PT HAS NO DME HE IS COVID VAX HE SAYS HE HAS A HCP NAMING HIS S/O HIS AGENT PCP: [facility] SUGGS DCP TBD PENDING RECOVERY NURSE CONSULT HOME VS DETOX TRANSPORT TBD BY DISPO
[2022-10-12] MEDS: 0.9 % Sodium Chloride Flush 3 ML SYRINGE IVFLUSH (11:17)
--- NOTE | 2022-10-12 13:13 | MHC.RECOVRN ---
Addendum entered by Yesi Plascencia RN 10/12/22 15:46: Patient has been accepted to [facility] for 10pm Admission, reviewed parents to give patient ride to detox for 10pm, patient must bring all at home medications including oxycontin, patient verbalized understanding. Patient reports parents are not available until after 5pm. CM aware. Original Note: This brief writer received Addiction consult, alerted patient interested in detox by CM, detox referral placed to [facility] and [facility], will continue to follow referral and update.
--- NOTE | 2022-10-12 13:49 | MHC.CM.PN ---
PLAN IS HOME TODAY - SELF CARE RN AWARE
[2022-10-12 16:00] VITALS: BP 118/67; PULSE 72; RESP 15; TEMP 36.1; O2SAT 96
[2022-10-12] MEDS: Ondansetron ODT 8 MG TAB.RAPDIS TRANSLINGU (16:40)
== END 2022-10-12 18:09 | disposition home or self-care (01) | DRG 775 ==
LOC: HO.ED 03:02 → HO.EDOVER 09:02 → HO.S3 12:53
PROVIDERS: Admitting Provider Internal Medicine; Emergency Provider Emergency Medicine; PCP Family Medicine; Visit Provider Internal Medicine
DX: F10.229 Alcohol dependence with intoxication, unspecified (principal); G93.41 Metabolic encephalopathy; D61.818 Other pancytopenia; K70.31 Alcoholic cirrhosis of liver with ascites; K76.82 Hepatic encephalopathy; K76.6 Portal hypertension; Y90.8 Blood alcohol level of 240 mg/100 ml or more; K31.89 Other diseases of stomach and duodenum; Z20.822 Contact with and (suspected) exposure to COVID-19; Z87.891 Personal history of nicotine dependence; Z88.0 Allergy status to penicillin; Z79.899 Other long term (current) drug therapy
CPT/HCPCS: 36415; 80053; 80307; 81003; 82077; 82140; 85025; 85610; 87635; 99285; J2560